=== PATIENT | male | born 1960 | race Caucasian/White ===

== ENCOUNTER → 2016-11-18 | Outpatient (CLI) | payer MEDICARE ==
[~2016-11-18] MED LIST: AMIODARONE HCL100 MG PO; BAYER ASPIRIN325 M1 PO; BENTYL10 MG PO; CALCIUM500 MG; CELLCEPT500 MG PO; CLOPIDOGREL75 MG PO; ELIQUIS5 MG PO; FOSAMAX; FOSAMAX PO; IMDUR-ER60 MG PO; LIPITOR20 MG PO; LOPID600 MG PO; METOPROLOL TAR25 MG PO; MYCOPHENOLIC A360 MG PO; NEXIUM PO; NITROGLYGERIN0.4 MG SL; OMEGA 3 FISH OI1 CAP PO; PRAVASTATIN SOD20 MG PO; PREDNISONE5 M1 PO; PRILOSEC20 MG PO; PROGRAF1 MG PO; SODIUM BICARBO650 MG PO; VITAMIN A10000 UNIT PO
[2016-11-18 07:27] LABS: HEMATOCRIT 36.2 % (38.0-50.0); HEMOGLOBIN 11.8 gm/dL (13.0-16.0); MEAN CELL VOLUME 87.5 FL (83-96); MEAN CORPUSCULAR HEMOGLOBIN 28.5 PG (28-34); MEAN CORPUSCULAR HGB CONC 32.5 g/dL (30-36); MEAN PLATELET VOLUME 8.5 FL (6.5-11.5); RED BLOOD COUNT 4.14 X10e (3.90-5.60); WHITE BLOOD COUNT 9.7 X10e3 (4.0-10.5)
[2016-11-18 07:36] LABS: ALBUMIN SERUM 3.3 g/dL (3.5-5.0); BILIRUBIN,TOTAL 0.5 mg/dL (0.2-2.0); BUN/CREATININE RATIO 16.66; CALCIUM SERUM 9.3 mg/dL (8.4-10.2); CREATININE SERUM 2.1 mg/dL (0.6-1.4); GLOM FILT RATE Estimated 34.4 mL/min (>60); POTASSIUM 4.4 mmol/L (3.5-5.1); PROTEIN TOTAL SERUM 6.5 g/dL (6.0-8.3)
== END | disposition home or self-care (01) ==
LOC: SLAB 06:51
PROVIDERS: Internal Medicine
DX: N18.3 Chronic kidney disease, stage 3 (moderate) (principal); Z94.0 Kidney transplant status
CPT/HCPCS: 80053; 85027